=== PATIENT | male | born 1995 | race African-American/Black ===

== ENCOUNTER 2020-12-05 21:03 | Emergency (ER) | payer OTHER ==
[~2020-12-05] VITALS: Ht 190.5 cm; Wt 112.5 kg
[2020-12-05] MEDS ORDERED: IBUPROFEN 600MG TAB PO ONE (21:40)
[2020-12-05 22:19] VITALS: BP 123/65
== END 2020-12-05 22:22 | disposition home or self-care (01) ==
LOC: M ED 21:03
DX: S61.210A Laceration without foreign body of right index finger without damage to nail, initial encounter (principal); W26.8XXA Contact with other sharp object(s), not elsewhere classified, initial encounter; Y92.89 Other specified places as the place of occurrence of the external cause; Y99.0 Civilian activity done for income or pay

== ENCOUNTER 2021-05-11 14:25 | Emergency (ER) | payer OTHER ==
[~2021-05-11] VITALS: Ht 193 cm; Wt 109.1 kg
[2021-05-11 19:11] LABS: BASO % 0.4 % (0.0-1.0); EOS # 0.1 10^3/uL (0.0-0.5); EOS % 1.6 % (0.0-3.0); HEMATOCRIT 41.5 % (42.0-52.0); HEMOGLOBIN 14.1 g/dl (13.5-17.5); LYMPH # 1.8 10^3/uL (1.5-5.0); LYMPH % 37.3 % (24.0-44.0); MEAN CORPUSCULAR VOLUME 88.3 fl (80.0-96.0); MONO # 0.4 10^3/uL (0.0-0.8); MONO % 7.3 % (2.0-8.0); NEUTROPHILS # 2.6 10^3/uL (1.5-8.5); NEUTROPHILS % 53.2 % (36.0-66.0); PLATELET COUNT, AUTOMATED 242 10^3/uL (150-450); WHITE BLOOD COUNT 4.9 10^3/uL (4.0-10.0)
[2021-05-11 19:31] LABS: ALBUMIN 4.1 GM/DL (3.2-5.2); ALT/SGPT 19 U/L (12-78); BILIRUBIN,TOTAL 0.6 MG/DL (0.2-1.0); BLOOD UREA NITROGEN 19 MG/DL (7-18); CALCIUM LEVEL 9.2 MG/DL (8.5-10.1); CARBON DIOXIDE LEVEL 28 MEQ/L (21-32); CHLORIDE LEVEL 110 MEQ/L (98-107); CREATININE FOR GFR 1.12 MG/DL (0.70-1.30); GLOMERULAR FILTRATION RATE > 60.0 (>60); GLUCOSE, FASTING 86 MG/DL (70-100); POTASSIUM SERUM 4.4 MEQ/L (3.5-5.1); SODIUM LEVEL 143 MEQ/L (136-145); TOTAL PROTEIN 7.4 GM/DL (6.4-8.2)
[2021-05-11 19:55] VITALS: BP 140/78
== END 2021-05-11 20:02 | disposition home or self-care (01) ==
LOC: M ED 14:25
DX: K40.90 Unilateral inguinal hernia, without obstruction or gangrene, not specified as recurrent (principal)

== ENCOUNTER 2022-04-16 13:11 | Emergency (ER) | payer OTHER ==
[~2022-04-16] VITALS: Ht 190.5 cm; Wt 115.1 kg
[2022-04-16 13:11] VITALS: BP 136/83
[2022-04-16] MEDS ORDERED: TETRACAINE 0.5% OPHTH SOLN 4ML OD ONE (13:50)
[2022-04-16] MEDS ORDERED: FLUORESCEIN OPHTH 1 MG STRIP OD ONE (13:50)
[2022-04-16] MEDS ORDERED: CIPR7.5D5 OTIC (14:12)
== END 2022-04-16 14:27 | disposition home or self-care (01) ==
LOC: M ED 13:11
DX: H20.011 Primary iridocyclitis, right eye (principal)